=== PATIENT | male | born 1940 | race Two or more races ===

== ENCOUNTER → 2025-06-21 | Emergency (ER) | payer OTHER ==
[~2025-06-21] VITALS: Ht 154.9 cm; Wt 59.9 kg
[~2025-06-21] MED LIST: ACETAMINOPHEN 500 MG GEL..CAP PO STA; CLOPIDOGREL BIS75 MG PO; IRBESARTAN150 MG PO; JANUMET 50-1,01 EACH PO; ORPHENADRINE CITRATE 30 MG/ML AMPUL IM STA; SIMVASTATIN40 MG PO
[2025-06-21 14:32] LABS: BASO % 0.6 % (0.1-1.2); EOS # 0.04 (0.04-0.54); EOS % 0.6 % (0.7-7.0); LYMPH # 1.24 (1.18-3.74); LYMPH % 19.1 % (19.3-53.1); MEAN PLATELET VOLUME 10.40 fl (9.4-12.4); MONO # 0.29 (0.24-0.82); MONO % 4.5 % (4.7-12.5); NEUT # 4.85 (1.56-6.13); NEUT % 74.7 % (34.0-71.1); RED CELL DISTRIBUTION WIDTH 11.9 % (11.6-14.4)
[2025-06-21 14:50] LABS: INR 1.03
[2025-06-21 14:56] LABS: ALT/SGPT 28.0 U/L (12-78); AST/SGOT 17.0 U/L (15-37); BILIRUBIN TOTAL 0.4 mg/dL (0.3-1.2); BUN CREA RATIO 19.0 (7.0-25.0); CREATININE SERUM 1.56 mg/dL (0.70-1.30); GFR 42.61; GLOBULINA 3.7 G/DL (2.4-3.5); OSMOLALITY SERUM 285.0 MOSM/KG (275-295)
[2025-06-21 14:57] LABS: GLUCOSE FASTING 282.0 mg/dL (65-100)
[2025-06-21 16:12] LABS: URINE APPEARANCE Clear; URINE BILIRRUBIN Negative (NEGATIVE); URINE BLOOD Negative; URINE COLOR Yellow; URINE GLUCOSE Negative (NEGATIVE); URINE KETONE Negative (NEGATIVE); URINE LEUKOCYTE Trace; URINE NITRATE Negative; URINE PROTEIN Trace (NEGATIVE); URINE UROBILINOGEN 0.2 E.U./dl
[2025-06-21 16:19] LABS: URINE BACTERIA 32.4 uL (0.0-1933); URINE EPITHELIAL CELLS 2.1 uL (0.0-38.8); URINE WBC 5.3 uL (0.0-23.2)
[2025-06-21 16:21] LABS: URINE CAST 0.14 uL (0.0-1.40); URINE RBC 0.1 uL (0.0-20.8)
== END | disposition home or self-care (01) ==
LOC: ER 12:12
PROVIDERS: General Practice
DX: G89.11 Acute pain due to trauma (principal); M54.50 Low back pain, unspecified; Z88.6 Allergy status to analgesic agent; I10 Essential (primary) hypertension; E11.65 Type 2 diabetes mellitus with hyperglycemia; Z79.84 Long term (current) use of oral hypoglycemic drugs; I12.9 Hypertensive chronic kidney disease with stage 1 through stage 4 chronic kidney disease, or unspecified chronic kidney disease; E11.22 Type 2 diabetes mellitus with diabetic chronic kidney disease; N18.9 Chronic kidney disease, unspecified
CPT/HCPCS: 36415; 71045; 72170; 73551; 93005; 96372; 99283; J2360